=== PATIENT | male | born 1990 ===

== ENCOUNTER → 2023-03-27 | Outpatient (CLI) | payer OTHER ==
[2023-03-29 09:43] LABS: Hepatitis B Surface Antigen Negative (Negative)
== END | disposition home or self-care (01) ==
LOC: LAB 12:57
PROVIDERS: ATTEND Nurse Practitioner
DX: Z77.21 Contact with and (suspected) exposure to potentially hazardous body fluids (principal)
CPT/HCPCS: 36415; 86703; 86706; 86803; 87340

== ENCOUNTER 2023-09-10 07:55 | Emergency (ER) | payer OTHER ==
[~2023-09-10] VITALS: Ht 188 cm; Wt 115.0 kg
[2023-09-10 08:08] VITALS: BP 134/86; PULSE 77; RESP 96; TEMP 98.2; O2SAT 96
[2023-09-10] MEDS ORDERED: AUG875T PO (08:24)
[2023-09-10] MEDS ORDERED: PROM1SOL4 PO (08:24)
[2023-09-10] MEDS ORDERED: BENZ200C64 PO (08:24)
== END 2023-09-10 08:28 | disposition home or self-care (01) ==
LOC: ER 07:55
DX: J02.9 Acute pharyngitis, unspecified (principal); R05.9 Cough, unspecified